=== PATIENT | male | born 1990 | race African-American/Black ===

== ENCOUNTER 2018-08-23 20:24 | Emergency (ER) | payer SELFPAY ==
[~2018-08-23] VITALS: Ht 175.3 cm; Wt 65.0 kg
[2018-08-24] MEDS ORDERED: FLUORESCEIN SODIUM 1MG/STRIP OP ONE (02:30)
[2018-08-24] MEDS ORDERED: TETRACAINE 0.5% OPHTH DROPS 4ML OP ONE (02:30)
[2018-08-24] MEDS ORDERED: ACETAMINOPHEN 500MG TABLET PO ONE (02:30)
[2018-08-24 03:30] VITALS: BP 123/67
== END 2018-08-24 03:26 | disposition home or self-care (01) ==
LOC: ER 20:24
DX: T15.92XA Foreign body on external eye, part unspecified, left eye, initial encounter (principal); F17.200 Nicotine dependence, unspecified, uncomplicated; X58.XXXA Exposure to other specified factors, initial encounter; Y93.89 Activity, other specified; Y92.89 Other specified places as the place of occurrence of the external cause; Y99.8 Other external cause status
CPT/HCPCS: 99284

== ENCOUNTER 2018-08-31 15:48 | Emergency (ER) | payer SELFPAY ==
[~2018-08-31] VITALS: Ht 177.8 cm; Wt 76.0 kg
[2018-08-31 15:58] VITALS: BP 133/66
[2018-08-31] MEDS ORDERED: IPRATROPIUM/ALBUTEROL 0.5-3(2.5)MG/3ML NEB HHN ONE (16:15)
[2018-08-31] MEDS ORDERED: PREDNISONE 20MG TABLET PO STA (16:15)
[2018-08-31] MEDS ORDERED: LEVOFLOXACIN 500MG TABLET PO ONE (16:15)
[2018-08-31] MEDS ORDERED: ONDANSETRON 4MG ODT PO ONE (16:45)
== END 2018-08-31 18:04 | disposition home or self-care (01) ==
LOC: ER 16:04
DX: J45.901 Unspecified asthma with (acute) exacerbation (principal); R11.2 Nausea with vomiting, unspecified; R03.0 Elevated blood-pressure reading, without diagnosis of hypertension; F17.210 Nicotine dependence, cigarettes, uncomplicated; Z71.6 Tobacco abuse counseling
CPT/HCPCS: 71045; 94640; 99284; 99406; J7512; J7620; Q0162